=== PATIENT | female | born 1960 | race Caucasian/White ===

== ENCOUNTER → 2023-05-07 | Outpatient (CLI) | payer OTHER, SELFPAY ==
[2023-05-07 10:16] LABS: Hepatitis C Antibody Non-Reactive (Nonreactive)
[2023-05-07 10:50] LABS: ALB/GLOB Ratio 0.9 RATIO (0.9-2.4); AST(SGOT) 22 U/L (15-37); Alanine Aminotransfer ALT/SGPT 19 U/L (13-56); Albumin, Serum 3.6 g/dL (3.2-5.0); Alkaline Phosphatase 127 U/L (45-117); Anion Gap 8 (5-15); BUN 13 mg/dL (7-18); BUN/Creat Ratio 15.8 RATIO (10-20); Calcium,Total 9.4 mg/dL (8.5-10.1); Chloride 106 mmol/L (98-107); Creatinine, Serum 0.82 mg/dL (0.55-1.02); EST Glomerular Filtration Rate 75 mL/min (>60); Est Glom Filt Rate - Afr Amer 91 mL/min (>60); GGTP 26 U/L (5-55); Glucose 121 mg/dL (74-106); Potassium 3.7 mmol/L (3.5-5.1); Protein, Total 7.6 g/dL (6.4-8.2); Sodium Level 140 mmol/L (136-145); Thyroid Stim Hormone (TSH) 1.56 uIU/mL (0.358-3.74)
[2023-05-08 04:08] LABS: AFP, Tumor Marker 2.7 ng/mL (0.0-9.2)
== END | disposition home or self-care (01) ==
LOC: LABSPEC 09:00
PROVIDERS: Referring Provider Family Medicine; Visit Provider Family Medicine
DX: Z11.59 Encounter for screening for other viral diseases (principal); R74.8 Abnormal levels of other serum enzymes; R53.83 Other fatigue
CPT/HCPCS: 80053; 82105; 82977; 84443; 86803